=== PATIENT | female | born 1980 | race Caucasian/White ===

== ENCOUNTER → 2021-03-25 08:42 | Outpatient (CLI) | payer BC, SELFPAY ==
--- NOTE | 2021-03-25 08:46 | CT_ITS ---
PROCEDURE INFORMATION: Exam: CT Abdomen And Pelvis Without Contrast Exam date and time: 03/25/2021 8:46 AM Age: 40 years old Clinical indication: Abdominal pain; Additional info: Lower abd pain TECHNIQUE: Imaging protocol: Computed tomography of the abdomen and pelvis without contrast. Radiation optimization: All CT scans at this facility use at least one of these dose optimization techniques: automated exposure control; mA and/or kV adjustment per patient size (includes targeted exams where dose is matched to clinical indication); or iterative reconstruction. COMPARISON: No relevant prior studies available. FINDINGS: Liver: Normal. No mass. Gallbladder and bile ducts: Normal. No calcified stones. No ductal dilation. Pancreas: Normal. No ductal dilation. Spleen: Normal. No splenomegaly. Adrenal glands: Normal. No mass. 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 There is no evidence of renal or ureteral calcifications. Stomach and bowel: Unremarkable. No obstruction. No mucosal thickening. Appendix: Normal appendix Intraperitoneal space: Minimal free fluid in the pelvis. Vasculature: Unremarkable. No abdominal aortic aneurysm. Lymph nodes: Unremarkable. No enlarged lymph nodes. Urinary bladder: Unremarkable as visualized. Reproductive: 3 cm Simple cyst left ovary. Surgical resection of the uterus Bones/joints: Internal fixation device at L5/S1. Grade 2 spondylolisthesis of L5 on S1 there is a fractured screw at in the sacrum. Series 602, image 57. Soft tissues: Unremarkable. IMPRESSION: Internal fixation device at L5/S1. Grade 2 spondylolisthesis of L5 on S1 there is a fractured screw at in the sacrum. Series 602, image 57.
== END ==
PROVIDERS: PCP Family Medicine; Visit Provider Family Medicine
DX: R10.30 Lower abdominal pain, unspecified (principal)
CPT/HCPCS: 74176

== ENCOUNTER 2021-05-19 16:53 | Emergency (ER) | payer BC, SELFPAY ==
[2021-05-19 16:54] VITALS: BP 176/81; PULSE 76; RESP 18; TEMP 36.7; O2SAT 98; BMI 39.4
--- NOTE | 2021-05-19 16:59 | PC.NURSE ---
Patient is in restroom
--- NOTE | 2021-05-19 17:07 | CT_ITS ---
PROCEDURE INFORMATION: Exam: CT Abdomen And Pelvis With Contrast Exam date and time: 05/19/2021 5:07 PM Age: 40 years old Clinical indication: Abdominal pain; Epigastric; Additional info: Epigastric pain TECHNIQUE: Imaging protocol: Computed tomography of the abdomen and pelvis with contrast. Radiation optimization: All CT scans at this facility use at least one of these dose optimization techniques: automated exposure control; mA and/or kV adjustment per patient size (includes targeted exams where dose is matched to clinical indication); or iterative reconstruction. Contrast material: ISOVUE; Contrast volume: 75 ml; Contrast route: IV; COMPARISON: CT ABDOMEN PELVIS WO CON 03/25/2021 8:53 AM FINDINGS: Lungs: Nonspecific minor left basilar streaky opacities suggest atelectasis or parenchymal scarring. The visualized lung bases are otherwise clear. Pleural spaces: There are no pleural effusions. Heart: The visualized portions of the heart are unremarkable. There is no evidence of pericardial fluid collections. Mediastinal space: Apparent mild distal esophageal wall thickening could be on the basis of incomplete distension, small hiatal hernia but cannot exclude mild esophagitis. Diaphragm: A small hiatal hernia is present. Liver: There is diffuse decrease in hepatic parenchymal density consistent with fatty infiltration. Gallbladder and bile ducts: Mildly increased density material is seen within the gallbladder which may reflect stones or sludge. Gallbladder is otherwise within range of normal. Pancreas: The pancreas is normal. Spleen: There are a few small hypodensities within the spleen, the largest in the inferior spleen measuring approximately 10 mm. Comparison with prior study is limited due to lack of intravenous contrast within the prior study. Adrenal glands: The adrenal glands are normal. Kidneys and ureters: There is mild renal cortical thinning involving the left kidney, most noted posteriorly inferiorly and superior laterally. 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 No hydronephrosis. Stomach and bowel: The duodenum is unremarkable. Lack of gastrointestinal contrast limits evaluation of bowel. The colon is normal. Appendix: A normal appendix is identified. Intraperitoneal space: There is a small amount of free fluid in the left pelvis, mildly increased. No free air. Vasculature: No abdominal aortic aneurysm. Lymph nodes: There is no evidence of pathologic adenopathy. Urinary bladder: The bladder is normal. Reproductive: The uterus is either atrophic or absent. There is a cyst in the right ovary measuring 3.1 x 2.7 cm, likely functional cyst. The left ovary is normal. Bones/joints: Postoperative changes involve the L5-S1 level are stable. Grade 2 spondylolisthesis of L5 on S1 is stable. Previously described inferior right fractured screw within the right sacrum is stable. Degree of spondylolisthesis is stable. Moderate degenerative changes at this level are stable.There is no evidence of acute fracture. There are mild degenerative changes of the hip joints. Mild subchondral sclerosis involving the superior anterior right femur is present, somewhat atypical for AVN. Correlate clinically. There are mild degenerative changes of the sacroiliac joints. Soft tissues: No soft tissue swelling is identified. IMPRESSION: 1. Fatty hepatic infiltration. 2. Small hiatal hernia. 3. Apparent mild distal esophageal wall thickening consistent with esophagitis, incomplete distention or possibly small hiatal hernia. Cannot entirely exclude neoplastic process in the appropriate clinical setting. Correlate clinically. 4. Mildly increas
--- NOTE | 2021-05-19 17:07 | HMH.EDGENADL ---
ED Disposition Clinical Impression: Esophagitis, Epigastric pain Disposition: Home, Self-Care Condition on Discharge: Fair Instructions: DI for Epigastric Pain Additional Instructions: You have been evaluated for epigastric pain. Likely due to esophagitis or peptic ulcer disease. Please take 20 mg omeprazole daily. Follow-up with your primary care doctor within 24 to 48 hours. Follow-up with gastroenterology for upper scope. Try to follow a clear liquid diet, avoid spicy food, hot drinks. Turn to the emergency department at once for any new or worsening symptoms. Prescriptions: Mag Hydrox/Aluminum Hyd/Simeth [Maalox Advanced Suspension] 30 ml PO DAILY PRN #355 ml PRN Reason: Acid Reflux Transmission Status: Received by [id number] Omeprazole [Omeprazole 20mg Tab] 20 mg PO DAILY #30 tab Transmission Status: Received by [id number] Referrals: Jeremias Thurston MD [Primary Care Provider] - Earl Hoffman MD [Staff Physician] - Time of Disposition: 19:52 - Critical Care Critical Care Time: No Attestation: On , the high probability of a clinically significant, sudden or life threatening deterioration of the following system(s) required my full and direct attention, intervention and personal management. The time I documented below is in addition to time spent performing reported procedures but includes the following listed in this critical care notation. Medical Decision Making - Medical Records Medical records reviewed: Yes: I reviewed the patient's medical records. - Vamsi Inquiry Pt receiving controlled substance: No Vital Signs: 05/19/21 16:54 Temperature 98.0 F Temperature Source Oral Pulse Rate [Left Radial] 76 Respiratory Rate 18 Blood Pressure [Right Arm] 176/81 H Blood Pressure Mean [Right Arm] 112 Blood Pressure Source [Right Arm] Automatic Cuff Blood Pressure Position [Right Arm] Sitting 02 Sat by Pulse Oximetry 98 Oxygen Delivery Method Room Air - Lab Data Lab Results 05/19/21 17:07: Urine Color Yellow, Urine Appearance Clear, Urine pH 6.5, Ur Specific [place] 1.010, Urine Protein Negative, Urine Glucose (UA) Negative, Urine Ketones Negative, Urine Blood Negative, Urine Nitrate Negative, Urine Bilirubin Negative, Urine Urobilinogen 0.2, Ur Leukocyte Esterase Negative, Urine RBC None, Urine WBC Occasional, Ur Squamous Epith Cells 3-5, Urine Bacteria None 05/19/21 17:13: WBC 8.9, RBC 4.78, Hgb 15.3, Hct 46.4, MCV 97.2, MCH 32.0 H, MCHC 32.9, RDW 12.9, Plt Count 258, MPV 8.7, Neut % (Auto) 54.3, Lymph % (Auto) 35.1, [place] % (Auto) 5.1, Eos % (Auto) 3.6, Baso % (Auto) 2.0, Neut # (Auto) 4.8, Lymph # (Auto) 3.1, [place] # (Auto) 0.5, Eos # (Auto) 0.3, Baso # (Auto) 0.2 05/19/21 17:13: Urine HCG, Qual Negative 05/19/21 17:13: Sodium 138, Potassium 4.2, Chloride 104, Carbon Dioxide 29, Anion Gap 9.2, BUN 7, Creatinine 0.70, Estimated Creat Clear 172, Estimated GFR 92, Est GFR ( Amer) 111, Glucose 86, Calcium 8.9, Total Bilirubin 0.4, AST 21, ALT 14, Alkaline Phosphatase 87, Total Protein 7.6, Albumin 4.3, Globulin 3.3 H, Albumin/Globulin Ratio 1.3, Lipase 40 Result diagrams: 05/19/21 17:13 05/19/21 17:13 Orders (Tests/Meds): ED MEDICATIONS Discontinued Medications Generic Name Dose Route Start Last Admin Trade Name Freq PRN Reason Stop Dose Admin Belladonna Alkaloids 60 ml 05/19/21 19:57 05/19/21 20:01 Gi Cocktail 60ml Udc PO 05/19/21 19:58 60 ml ONCE ONE Administration Iopamidol 75 ml 05/19/21 18:53 05/19/21 18:54 Iopamidol-370 (76%);100ml Bottle IV 05/19/21 18:54 75 ml ONCE ONE Administration Sodium Chloride 10 ml 05/19/21 18:53 05/19/21 18:54 Sodium Chloride 0.9% 10ml Syr (Rad Only) IV 05/19/21 18:54 10 ml ONCE ONE Administration - CT Data CT Scan: Abdomen Time Received: 19:[address] Reviewed: Yes: I have reviewed the patient's CT results, I have viewed the radiologist's interpretation Findings Narrative:
[2021-05-19 17:19] LABS: Microscopic, Urine URINE MICROSCOPIC (MICROSCOPIC)
[2021-05-19 17:28] LABS: Basophils # 0.2 K/mm3 (0-0.2); Eosinophils # 0.3 K/mm3 (0.0-0.4); Eosinophils % 3.6 % (0.1-12.0); Hematocrit 46.4 % (37.0-47.0); Hemoglobin 15.3 g/dL (12.2-16.2); Lymphocytes # 3.1 K/mm3 (0.7-4.5); Lymphocytes % 35.1 % (10-50); Mean Corpuscular HGB Conc 32.9 g/dL (31.8-35.4); Mean Corpuscular Volume 97.2 fl (81-99); Mean Platelet Volume 8.7 fl (7.4-10.4); Monocytes # 0.5 K/mm3 (0.1-1.0); Monocytes % 5.1 % (1.7-9.3); Neutrophils # 4.8 K/mm3 (1.8-7.8); Neutrophils % 54.3 % (37.0-80.0); Platelet Count 258 K/mm3 (142-424); Red Blood Count 4.78 M/mm3 (4.20-5.40); Red Cell Distribution Width 12.9 % (11.5-17.5); White Blood Count 8.9 K/mm3 (4.8-10.8)
[2021-05-19 17:50] LABS: Appearance,Urine CLEAR (Clear); Bilirubin,Urine Negative (Negative); Blood, Urine Negative (Negative); Color,Urine YELLOW (Yellow); Glucose,Urine (UA) Negative (Negative); Ketones,Urine Negative (Negative); Leukocyte Esterase,Urine Negative (Negative); Nitrate,Urine Negative (Negative); PH,Urine 6.5 (5.0-8.5); Protein,Urine Negative (Negative); Urobilinogen,Urine 0.2 EU/dl (0.2)
[2021-05-19 17:54] LABS: Alanine Aminotransferase 14 U/L (12-78); Albumin Level 4.3 g/dl (3.5-5.0); Albumin/Globulin Ratio 1.3 (1.1-1.8); Alkaline Phosphatase 87 U/L (38-126); Anion Gap 9.2 mEq/L (5-15); Aspartate Amino Transferase 21 U/L (14-36); Bilirubin,Total 0.4 mg/dl (0.2-1.3); Blood Urea Nitrogen 7 mg/dl (7-17); Calcium 8.9 mg/dl (8.4-10.2); Carbon Dioxide 29 mmol/L (22.0-30.0); Chloride 104 mmol/L (98-107); Creatinine Clearance Estimated 172 mL/min (50-200); Estimated Glomerular Filt Rate 92 ml/min (>60); GFR (African American) 111 ML/MIN (>60); Globulin 3.3 g/dL (1.3-3.2); Glucose 86 mg/dl (74-100); Lipase 40 U/L (23-300); Potassium 4.2 mmoL/L (3.5-5.1); Sodium 138 mmol/L (136-145); Total Protein,Serum 7.6 g/dl (6.3-8.2)
[2021-05-19 18:03] LABS: Urine Pregnancy, HCG Qual. Negative (Negative)
[2021-05-19 18:14] LABS: WBC,Urine Occasional #/hpf (0-3)
[2021-05-19 21:06] VITALS: BP 116/62; PULSE 73; RESP 16; TEMP 36.8; O2SAT 98
== END 2021-05-19 21:47 | disposition home or self-care (01) ==
PROVIDERS: Emergency Provider Emergency Medicine; PCP Family Medicine
DX: K21.00 Gastro-esophageal reflux disease with esophagitis, without bleeding (principal); F17.210 Nicotine dependence, cigarettes, uncomplicated
CPT/HCPCS: 74177; 80053; 81001; 81025; 83690; 85025; 99282; Q9967

== ENCOUNTER → 2021-05-30 08:58 | Outpatient (CLI) | payer BC, SELFPAY ==
--- NOTE | 2021-05-30 09:06 | US_ITS ---
FINAL REPORT CLINICAL HISTORY: ABNORMAL CT OF THE ABDOMEN; left lower quad pain; obesity COMPARISON: Prior CT dated May 19, 2021 FINDINGS: Sonographic images of the abdomen were obtained. The liver has increased echogenicity consistent with mild fatty infiltration. The gallbladder is slightly contracted without evidence of sludge or gallstones. There is no evidence of biliary ductal dilatation. The common hepatic duct measures 3 mm, which is within normal limits. Limited images of the pancreas are unremarkable, the tail of the pancreas is obscured by bowel gas. The spleen size is normal. There is a hyperechoic nodule in the inferior spleen measuring 1.3 cm which is nonspecific and could represent a hemangioma. The other small nodules seen on CT are not visualized. The right kidney measures 12.2 cm in length. The left kidney measures 11.5 cm in length. There is normal renal echogenicity. There is no evidence of hydronephrosis. The aorta has an unremarkable appearance. Limited images of the inferior vena cava are unremarkable. IMPRESSION: Mild fatty infiltration of the liver. Hyperechoic nodule in the inferior spleen measuring 1.3 cm, nonspecific and could represent a hemangioma. Reviewed, Interpreted and Dictated by Javon Canas III, MD Transcribed by Jeanette Miller Authenticated by Javon Canas III, MD on 05/30/2021 10:42:22 AM [facility]
== END ==
PROVIDERS: PCP Family Medicine; Visit Provider Nurse Practitioner Family
DX: R93.5 Abnormal findings on diagnostic imaging of other abdominal regions, including retroperitoneum (principal)
CPT/HCPCS: 76700

== ENCOUNTER 2022-04-30 11:14 | Emergency (ER) | payer SELFPAY ==
[2022-04-30 11:26] VITALS: BP 133/71; PULSE 89; RESP 18; O2SAT 97; BMI 40.3
[2022-04-30 11:35] VITALS: BP 133/71; PULSE 89; RESP 18; TEMP 36.9; O2SAT 97; BMI 40.1
--- NOTE | 2022-04-30 12:04 | EXP.UTC ---
Discharge Plan Disposition Patient Disposition: Home, Self-Care Condition: Good Prescriptions Prescriptions: New doxycycline hyclate 100 mg capsule 100 mg PO BID Qty: 20 0RF No Action omeprazole 20 MG tablet,delayed release (DR/EC) 20 mg PO DAILY Qty: 30 0RF alum-mag hydroxide-simeth 355 ML suspension 30 ml PO DAILY PRN (Reason: Acid Reflux) Qty: 355 0RF Referrals Follow up/Referrals: Litzy Trejo PA [Primary Care Provider] - See instructions Activity Restrictions/Add. Instructions Additional Instructions/Restrictions: Warm compresses to area every couple hours Sitz baths may help with irritation and swelling Follow up with OBGYN if no improvement or any worsening of symptoms Straight to ER if any life threatening symptoms Clinical Impressions Clinical Impression: Bartholin's gland infection Stand Alone Forms Stand Alone Forms: Work/School Release Instructions Patient Instructions: Doxycycline, DI for Bartholin Gland Cyst, Bartholin Gland Cyst Discharge ED Provider: Fadumo Garcia [facility] General Stated complaint: Possible cyst genital area Mode of Arrival: Ambulatory Source of Information: Patient Limitations: No Limitations Time Seen by Provider: 04/30/22 12:10 Description of Symptoms (Recalled from Triage Doc. by RN): PATIENT C/O CYST TO GENITAL AREA HEENT Symptoms (Recalled from RN notes): No Resp Symptoms (Recalled from RN notes): No Skin Symptoms (Recalled from RN notes): No MS Symptoms (Recalled from RN notes): No Functional Status (Recalled from RN notes): WNL History of Present Illness Provider Complaint: Patient states that she has a small cyst like area on her left labia just inside her vagina for about a week States that it hasnt got any bigger but not got any better States that she usually gets boils and cysts and takes Doxy but she was out of it and wanted to come in and get some Related Data Previous Rx's Medication Instructions Recorded aluminum-mag hydroxide-simethicone 30 ml PO DAILY PRN Acid Reflux 05/19/21 200 mg-200 mg-20 mg/5 mL oral susp #355 mL omeprazole 20 mg tablet,delayed 20 mg PO DAILY #30 tabs 05/19/21 release doxycycline hyclate 100 mg capsule 100 mg PO BID #20 caps 04/30/22 Allergies Allergy/AdvReac Type Severity Reaction Status Date / Time No Known Allergies Allergy Verified 05/19/21 19:59 Worker's Comp Is this a Worker's Comp case?: No [facility] Disclaimer: The information contained in this section may have been updated after the patient was seen, as this information can be updated by other users. Medical History (Updated 04/30/22 @ 12:20 by Fadumo Garcia APRN) Anxiety Asthma Depression Migraine Urinary tract infection Surgical History (Updated 04/30/22 @ 11:52 by Ashley Gresham RN) History of hysterectomy History of tubal ligation Social History (Updated 04/30/22 @ 11:53 by Ashley Gresham RN) Smoking Status: Unknown if ever smoked alcohol intake: never current occupational status: other Travel in the last 8 weeks: None ROS Obtained: Yes All systems reviewed & no additional complaints except as documented and Yes Systems reviewed as appropriate & no additional complaints except as documented Constitutional Constitutional: Reports system reviewed and no additional complaints, except as documented and Reports as per HPI Cardiovascular Cardiovascular: Reports system reviewed and no additional complaints, except as documented and Reports as per HPI Respiratory Respiratory: Reports system reviewed and no additional complaints, except as documented and Reports as per HPI Gastrointestinal Gastrointestingal: Reports system reviewed and no additional complaints, except as documented and as per HPI Genitourinary Female Genitourinary: Reports system reviewed and no additional complaints, except as documented, Reports as per HPI and Reports other Comments: Cyst like boil on her left labia x 1 week Phy
[2022-04-30 12:19] VITALS: BP 133/71; PULSE 89; RESP 18; TEMP 36.9; O2SAT 97
== END 2022-04-30 12:25 | disposition home or self-care (01) ==
PROVIDERS: Emergency Provider Nurse Practitioner; PCP Physician Assistant
DX: N75.9 Disease of Bartholin's gland, unspecified (principal)
CPT/HCPCS: 99212; 99213; G0463

== ENCOUNTER 2022-07-24 17:19 | Emergency (ER) | payer BC, SELFPAY ==
[2022-07-24 18:20] VITALS: BP 143/84; PULSE 71; RESP 20; TEMP 36.7; O2SAT 100; BMI 40.9
--- NOTE | 2022-07-24 18:24 | EXP.UTC ---
Discharge Plan Disposition Patient Disposition: Home, Self-Care Condition: Good Prescriptions Prescriptions: New amoxicillin [amoxicillin] 500 mg tablet 500 mg PO TID 10 Days Qty: 30 0RF diphenhydramine HCl [Diphenhydramine HCl] 25 mg capsule 25 mg PO Q6HP PRN (Reason: Itching) Qty: 30 0RF methylprednisolone 4 mg Tablets,Dose Pack 4 mg PO DIRECTED Qty: 21 0RF fluconazole [Diflucan] 150 mg tablet 150 mg PO ONCE Qty: 1 2RF Referrals Follow up/Referrals: Litzy Trejo PA [Primary Care Provider] - See instructions Activity Restrictions/Add. Instructions Additional Instructions/Restrictions: Drink plenty of fluids. Take tylenol or ibuprofen for pain or fever. Take the medications as directed. Follow up with your regular doctor. GO TO THE ER FOR ANY WORSENING SYMPTOMS Throw your tooth brush away and get a new one. Start listing sulfa and bactrim on your allergy list. Clinical Impressions Clinical Impression: Strep throat, Allergic reaction Instructions Patient Instructions: Strep Throat, DI for Strep Throat Discharge ED Provider: Hamlet Osorio [facility] General Stated complaint: head cold,rash Time Seen by Provider: 07/24/22 18:24 History of Present Illness Provider Complaint: She states that she has had a rash on her legs and a sore throat for the past 2 days. Related Data Previous Rx's Medication Instructions Recorded amoxicillin 500 mg tablet 500 mg PO TID 10 days #30 tabs 07/24/22 diphenhydramine HCl 25 mg capsule 25 mg PO Q6HP PRN Itching #30 caps 07/24/22 fluconazole 150 mg tablet 150 mg PO ONCE #1 tab 07/24/22 (Diflucan) methylprednisolone 4 mg tablets in 4 mg PO DIRECTED #21 tabs 07/24/22 a dose pack Allergies Allergy/AdvReac Type Severity Reaction Status Date / Time sulfamethoxazole Allergy Rash Verified 07/24/22 18:43 [From Bactrim] trimethoprim [From Bactrim] Allergy Rash Verified 07/24/22 18:43 [facility] Disclaimer: The information contained in this section may have been updated after the patient was seen, as this information can be updated by other users. Medical History Anxiety Asthma Depression Migraine Urinary tract infection Surgical History History of hysterectomy History of tubal ligation Social History Smoking Status: Unknown if ever smoked alcohol intake: never current occupational status: other Travel in the last 8 weeks: None ROS Obtained: Yes All systems reviewed & no additional complaints except as documented Constitutional Constitutional: Reports chills and Reports fever(s) Eyes Eyes: Denies eye discharge ENT Ears, Nose, Mouth, and Throat: Reports as per HPI Cardiovascular Cardiovascular: Denies chest pain Respiratory Respiratory: Denies chest congestion and Reports cough Gastrointestinal Gastrointestingal: Reports nausea; Denies abdominal pain, constipation, cramping, diarrhea or vomiting Musculoskeletal Musculoskeletal: Denies arthralgias Integumentary/Breasts Skin/Breast: Reports as per HPI and Reports rash Neurologic Neurologic: Denies paresthesias Physical Exam General General appearance: alert and in no apparent distress Head Head exam: atraumatic, normocephalic and normal inspection Eye Eye exam: Present normal appearance, PERRL and EOMI ENT ENT exam: Present mucous membranes moist and normal external ear exam Expanded ENT Exam TM/Canal exam: Bilateral TM: erythema and bulging Nose exam: Absent sinus tenderness Mouth exam: Present normal external inspection; Absent drooling Teeth exam: Present normal inspection Throat exam: Present tonsillar erythema, tonsillomegaly and tonsillar exudate Neck Neck exam: Present normal inspection, full ROM and trachea midline; Absent tenderness, meningismus or lymphadenopathy Chest Ches
[2022-07-24 18:33] LABS: UTC Strep Screen (Rapid) Positive (Negative)
[2022-07-24 18:58] VITALS: BP 102/75; PULSE 83; RESP 20; TEMP 36.7; O2SAT 98
== END 2022-07-24 18:57 | disposition home or self-care (01) ==
PROVIDERS: Emergency Provider Nurse Practitioner Family; PCP Physician Assistant
DX: J02.0 Streptococcal pharyngitis (principal); L27.1 Localized skin eruption due to drugs and medicaments taken internally; T36.8X5A Adverse effect of other systemic antibiotics, initial encounter
CPT/HCPCS: 87880; 99212; 99214; G0463

== ENCOUNTER → 2022-07-28 08:45 | Outpatient (CLI) | payer BC, SELFPAY ==
--- NOTE | 2022-07-28 08:48 | MR_ITS ---
FINAL REPORT CLINICAL HISTORY: OTHER DISEASES OF SPLEEN abnormal exam luq abdomen pain swelling in luq COMPARISON: US abdomen 05/30/2021 FINDINGS: Multiplanar MR imaging of the abdomen was performed without and with contrast. Images of the liver reveal no evidence of mass. Liver measures 19 cm in craniocaudal dimension. There is no evidence of biliary ductal dilatation. The gallbladder has an unremarkable appearance. There are no signal abnormalities seen in the gallbladder. There is several tiny foci of abnormal signal in the spleen. Individual lesions measure less than 1 cm in size. Findings are well displayed on image 12 of series 9. On pre and post infusion images these lesions appear to equilibrate with splenic parenchyma. Findings are favored to represent small hemangiomas. The kidneys are unremarkable. No abnormal fluid collection is seen. IMPRESSION: Subcentimeter foci of abnormal signal in the spleen equilibrate on parenchymal phase post infusion images, probably related to small hemangiomas. Reviewed, Interpreted and Dictated by Bg Rosa MD Transcribed by Farzana Rick Authenticated and . [facility]
== END ==
LOC: RAD 08:45
PROVIDERS: PCP Physician Assistant; Visit Provider Physician Assistant
DX: D73.89 Other diseases of spleen (principal)
CPT/HCPCS: 74183; A9576